=== PATIENT | male | born 2000 | race African-American/Black ===

== ENCOUNTER 2022-07-26 16:25 | Emergency (ER) | payer OTHER, SELFPAY ==
[2022-07-26 17:07] VITALS: BP 139/49; PULSE 78; RESP 18; TEMP 37.6; O2SAT 100; BMI 24.0
--- NOTE | 2022-07-26 17:08 | ED.EXTPRO ---
HPI - Extremity Problem General Chief complaint: General Medical Stated complaint: Swollen finger Time Seen by Provider: 07/26/22 17:18 Source: patient and RN notes reviewed Limitations: no limitations History of Present Illness HPI Narrative: This is a [id number]-male presenting today with evaluation of right index finger swelling and pain x 2 weeks. Denies any trauma or injury. Denies any fevers or chills. He reports pain with palpation and bending of the finger. He denies any numbness, tingling. No known injury. MD Complaint: extremity pain Onset (ago): week(s) Pain Consistency: constant Location: right (index finger) Quality: aching Radiation: none Relieving factors: nothing Exacerbating factors: exertion Associated symptoms: denies other symptoms Related Data Previous Rx's Medication Instructions Recorded cephalexin 500 mg capsule 500 mg PO Q6H 1 week #28 caps 07/26/22 ibuprofen 600 mg tablet 600 mg PO Q8H PRN pain #14 tabs 07/26/22 Allergies Allergy/AdvReac Type Severity Reaction Status Date / Time No Known Allergies Allergy Verified 07/26/22 17:11 Review of Systems Review of Systems: Yes all other systems are reviewed and are negative [facility] Past Medical History Attestation statement: The following information was validated with the patient. Social History Social History Advance Directives: No Advance Directives Information Provided: No Physical Exam Vital Signs: Vital Signs: Last Vital Signs Temp 99.7 F 07/26/22 17:07 Pulse 78 07/26/22 17:07 Resp 18 07/26/22 17:07 BP 139/49 L 07/26/22 17:07 Pulse Ox 100 07/26/22 17:07 O2 Del Method 07/26/22 17:07 BMI result Body Mass Index 24.0 Appearance: Alert. Oriented X3. No acute distress. HEENT: normal inspection CVS: Normal heart rate and rhythm. Pulses normal. Respiratory: No respiratory distress. Skin: Skin warm and dry. Normal skin color. Normal skin turgor. No rashes. Extremities: Right second digit there is a small, 2mm tender erythematous fluctuant area at the proximal nailbed. No drainage. Neuro: Oriented X 3. No motor deficit. No sensory deficit. Course Course Course Narrative: [id number]-male presenting today with complaints of right index finger pain and swelling x 2 weeks. No trauma or injury. Symptoms consistent with paronychia. Small 1mm incision made overlying fluctuance, and moderate amount of white purulent drainage expressed. Right second finger soaked in saline for 10 minutes post incision. Patient tolerated procedure without any complications or concerns. Discharged patient on a 1 week course of Keflex and given rx for ibuprofen to be taken as needed for pain. Educated to soak finger in warm soapy water and to watch for any signs of infection. Patient understands and agrees with plan. Medical Decision Making Differential Diagnosis Differential Diagnoses: The differential diagnosis associated with the presentation includes Paronychia, less likely deep tissue or tenosynovitis of the finger. No evidence of associated cellulitis. Prescription Management I considered prescription management with: Pain Medication and Antibiotic Procedures Abscess I/D Site: hand Side (if applicable): right Technique: incised with blade Sent for culture/gram staining?: No Irrigation: Yes Packing used?: none Critical Care Time Critical Care Time Critical Care Time: No Discharge Plan Discharge Clinical Impression: Paronychia of finger of right hand Patient Disposition: Home, Self-Care Instructions: Paronychia (ED), Cellulitis (ED) Additional Instructions: Take prescribed antibiotic as directed. Watch for any signs of infection such as fevers, chills, increased redness, or swelling. Soak finger in warm, soapy water 2-3 times per day. More drainage may be expressed from your finger. If any new or worsening symptoms occur, please return for re-evaluation. Prescriptions: New cephalexin 500 mg capsule 500 mg PO Q6H 7 Days Qty: 28 0RF ibuprofen 600 mg tablet 600 mg PO Q8H PRN (Reason: pain) Qty: 14 0RF Stand Alone Forms: Work/School Release Interventions: ED Discharge Assessment Last Done: 07/26/22 17:29 Discharge Date/Time: 07/26/22 17:29
--- OUTSIDE RECORDS SUMMARY | 2022-07-26 17:23 | XMS_ITS | Continuity of Care Document ---
:2000 Author Organization [facility] Address [address] [place] [address] Phone Care Team Providers Name Role Phone Kirk Lanza Family Provider Bereket Lindsay Emergency Provider [phone] Pcp-None, Primary Care Provider Unavailable Allergies, Adverse Reactions, Alerts No known allergies. Medications Medication Status Dose Units Route Directions Qty Days Start End Ins tructions Date Date Ibuprofen Active 600 MG PO EVERY 6 02 April (Motrin) 600 HOURS , MG Tablet 2019 10:36am Problems Active Problems Medical Problem Onset Date Status Abscess of groin, right Active Inactive/Resolved Problems Medical Problem Onset Date Status Abscess of skin or subcutaneous tissue R esolved Advance Directives Advance Directive Response Recorded Date/Time Advance Directives No March 18, 2020 9 :31am Health Care Proxy No March 18, 2020 9 :31am Chief Complaint and Reason for Visit Chief Complaint pain in groin Encounters Encounter Location(s) Arrival/Admit Date Discharge/Depart Date Provider(s) Departed Kaden March 18, 2020 March 18, [address] [facility] 9:29am 10:51am y Assessments No Assessments Information Available Functional Status No Functional Status information available Goals Acute Goals Please return to the emergency departmen t in 3 days for wound check and wick removal. Please keep the piece of string or wick in place unt il returning. Change the dressing once daily if it becomes saturated. Take Tylenol and Motrin for p ain. Return immediately if there is any worsening pain, redness, swelling, testicular pain or di fficulty urinating. Mental Status No Mental Status Information Available Medical Equipment No Medical Equipment Information available Insurance Providers Guarantor Payton Fecu Address [address] [place] [address] [address] [place] [id number] Contact Info. Home Phone: Payer Policy Id Coverage Id Subscriber's Subscriber Id Effective E xpiration Name Date Date Network [id number] Payton Cainu [id number] Health (Medicaid) [facility] [id number] (Medicaid) [facility] [id number] Armond [id number] PCC Required Fecu Self Pay Self N/A Plan of Treatment Future Tests Future scheduled test information is unavailable Pending Tests Pending diagnostic test information is unavailable Future Visits Future appointment information is unavailable Referrals to Other Providers Reason for Referral Start Provider Provider Contact Provider Address Referral Date Information Md Pcp-None Future Procedures Future procedure information is unavailable Future Medications Future medication information is unavailable Patient Instructions ED Staph Skin Infec Abscess IandD Social History Smoking Status Status Date of Observation Never smoked tobacco (finding) March 18, 2020 10:4 8am Observation Status Observation Response Date of Response Lives With Family March 18, 2020 1 0:48am Assigned Sex Male Vital Signs Vital Reading Result Reference Range Collection Date/ Time Height 165.1 cm March 18 9:53am Weight 58.96 kg March 18 9:53am Body Temperature 99 [degF] 97.6-99.6 March 18, 2 020 9:53am Heart Rate 96 /min 56-106 March 18 9:53am Respiratory rate 16 /min 16-20 March 18, 2 020 9:53am Oxygen saturation by Pulse 99 % 95-100 Octob 2019 9:53am oximetry BP Systolic 116 mm[Hg] 90-140 March 18 9:53am BP Diastolic 81 mm[Hg] 60-90 March 18 9:53am BMI (Body Mass Index) 21.6 kg/m2 March 182019 9:53am
--- OUTSIDE RECORDS SUMMARY | 2022-07-26 17:23 | XMS_ITS | Continuity of Care Document ---
:2000 Author Organization [facility] Address [address] [place] [address] Support Name Relationship Address Phone Kirk Lanza Primary Care Provider [address] [facility] [place] [address] Kirk Lanza Family Provider [address] [facility] [address] [address] [place] [address] Bereket Lindsay Emergency Provider [address] [facility] [phone] [place] [address] Allergies, Adverse Reactions, Alerts No known allergies. Medications No known medications. Problem List No problem information available. Procedures Procedure Date Status Us Lmtd Jt/Nonvasc Xtr Strux July 01, 2018 completed Relevant Diagnostic Tests and/or Laboratory Data No known relevant diagnostic tests, laboratory data, and/or discharge summary. Advance Directives Advance Directive Response Recorded Date/Time Advance Directives No July 01, 2018 11: 55am Health Care Proxy No July 01, 2018 11: 55am Chief Complaint and Reason for Visit Encounter Admit Date Chief Complaint Reason for Visit Departed Emergency July 01, 2018 11:54am ? abscess Hospital Discharge Instructions No known hospital discharge instructions. Encounters Encounter Facility Location Admit/Visit Discharge/Departure Atte nding Date Date Provider Departed [facility] July 01July 01, 2018 3:57pm [facility] 2018 11:54am Functional Status No known functional status. Immunizations No known immunizations. Payers Payer Name Policy Type Covered Covered [employer] Relationship Subscriber Subscriber Id [employer] Id RIP Commercial [id number] (Medicaid) [facility] Medicaid Armond [id number] Self / Same Armond 1000 [id number] PCC Required Fecu As Patient Fecu Self Pay Personal Payment (Christy - No Insurance) Plan of Care No Known Plan of Care Information Social History No known social history. Vital Signs Vital Reading Result Reference Range Collection Date/ Time Height 1.68 m July 01, 2018 1:18pm Weight 58.967 kg July 01, 2018 1:18pm Temperature 98.6 F 97.6 F-99.6 F July 01, 2018 1:18pm Pulse 70 BPM 56-106 July 01, 2018 1:18pm Respiration 14 RPM 16-20 July 01, 2018 1:18pm Pulse Oximetry 100 % 95-100 July 01, 2018 1:18pm Blood Pressure Systolic 118 - July 01, 2018 1:18pm Blood Pressure Diastolic 55 - July 01, 2018 1:18pm Body Mass Index 21.0 July 01, 2018 1:18pm
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
--- OUTSIDE RECORDS SUMMARY | 2022-07-26 17:24 | XMS_ITS | Continuity of Care Document ---
:2000 Author Organization [facility] Address [address] [place] [address] Phone Care Team Providers Name Role Phone MD Kirk Lanza Family Provider MD Lucía Cast Primary Care Provider MD Sahara Rodriguez Emergency Provider MD Bereket Lindsay Emergency Provider [phone] Chief Complaint and Reason for Visit Chief Complaint sore throat Sore throat Allergies, Adverse Reactions, Alerts No known allergies Social History Smoking Status Status Start Date End Date Date of Observat ion Never smoked tobacco (finding) A ugust 2020 6:49pm Observation Status Observation Response Date of Response Lives With Family January 26, 2021 6: 49pm Living Situation Private Home January 20, 2021 9: 17pm Additional Data Assigned Sex Male Problems Active Problems Medical Problem Onset Date Status Peritonsillar cellulitis Active Tonsillitis Active Inactive/Resolved Problems Medical Problem Onset Date Status Abscess of skin or subcutaneous tissue R esolved Abscess of groin, right Resolved Medications Medication Status Dose Units Route Directions Qty Days Start End Ins tructions Date Date Ondansetron Hcl Active 4 MG PO EVERY 6 13 January (Zofran) 4 mg HOURS , Tablet 2020 7:23pm Amoxicillin Active 875 MG PO TWICE A DAY January 26, 2021 7:24pm Amoxicillin-Pot Active 1 EACH PO TWICE A DAY 21 January Clavulanate , (Augmentin) 1 2020 EACH tablet 7:26pm Ibuprofen Active 600 MG PO EVERY 6 02 April HOURS 2019 10:36am Amoxicillin-Pot Active 10 ML PO THREE TIMES 300 10 January Clavulanate A DAY 19th, (Augmentin) 2020 250-62.5 mg/5 9:10pm mL Suspension For Reconstitution Procedures Procedure Date Performed Status Group A Streptococcus DNA Detection January 20, 2021 comp leted Relevant Diagnostic Tests and/or Laboratory Data Microbiology Results Procedure Source Result Collection Result Result Performin g Date/Time Date/Time Comment Site Group A Throat January 20, January 20, [facility] Streptococcus DNA 2020 7:42pm 2020 8:58pm [address] Detection [facility] [address] Vital Signs Vital Reading Result Reference Range Collection Date/ Time Body Temperature 100.2 [degF] 97.6-99.6 January 20 7:31pm Heart Rate 88 /min 60-90 January 20 7:31pm Respiratory rate 18 /min -January 20 7:31pm Oxygen saturation by Pulse 100 % 95-100 2020 7:31pm oximetry BP Systolic 124 mm[Hg] 90-140 January 20 7:31pm BP Diastolic 59 mm[Hg] 60-90 January 20 7:31pm Body Temperature 99.2 [degF] 97.6-99.6 January 26 6:49pm Heart Rate 69 /min 60-90 January 26 6:49pm Respiratory rate 18 /min -January 26 6:49pm Oxygen saturation by Pulse 100 % 95-100 2020 6:49pm oximetry BP Systolic 133 mm[Hg] 90-140 January 26 6:49pm BP Diastolic 66 mm[Hg] 60-90 January 26 6:49pm Advance Directives Advance Directive Response Recorded Date/Time Advance Directives No January 26, 2021 5: 58pm Health Care Proxy No January 26, 2021 5: 58pm Advance Directives No January 20, 2021 7: 24pm Health Care Proxy No January 20, 2021 7: 24pm Insurance Providers Guarantor Armond Archer Address [address] [facility] [address] [place] [id number] Contact Info. Home Phone: Payer Policy Id Coverage Id Subscriber's Subscriber Id Effective E xpiration Name Date Date Network [id number] Armond [id number] Health Fecu (Medicaid) [facility] [id number] (Medicaid) [facility] [id number] Armond [id number] PCC Required Fecu Self Pay Self N/A Encounters Encounter Location(s) Arrival/Admit Date [facility]) [facility] 7[facility]22[facility] 9[facility] January 26, 2021 [facility] 5:58pm 7:34pm y Plan of Treatment Future Tests Future scheduled test information is unavailable Pending Tests Pending diagnostic test information is unavailable Future Visits Future appointment information is unavailable Referrals to Other Providers Reason for Referral Start Provider Provider Contact Provider Address Referral Date Information Lucía Cast MD Work Phone: [facility] [address] [facility] 0 [phone] 1-2 days Lucía Cast MD Work Phone: [facility] [address] [facility] 0 [phone] Future Procedures Future procedure information is unavailable Future Medications Future medication information is unavailable Patient Instructions ED PERITONSILLAR INF-ABX only-no I/ ED Tonsillitis (Child) Tonsillitis in Adults Goals Acute Goals Your strep screen was negative but your being treated for tonsillitis. Take the full course of antibiotics even if you are feeling bett er in a few days. If you get worse or if you develop any of the warning signs accompanying informati on sheet, return immediately to the emergency department. Take acetaminophen and ibuprofen as need ed for pain. The liquid formulations are available [id number].
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
--- OUTSIDE RECORDS SUMMARY | 2022-07-26 17:24 | XMS_ITS | Continuity of Care Document ---
:2000 Author Organization [facility] Address [address] [place] [address] Phone Care Team Providers Name Role Phone [...] n Immunizations Immunization Event Not Given Dose Underwater Hunter Lot Number Vac cine Date Reason Number Informatio n Statement (VIS) Detail Tetanus, October 30, [id number] Diphtheria, 2021 Pertussis (Tdap) Procedures Procedure Date Performed Status XR foot LT min 3V March 03, 2022 1:59pm completed XR knee LT 3V March 03, 2022 1:59pm completed Relevant Diagnostic Tests and/or Laboratory Data Diagnostic Imaging Reports Report Dictated Date/Time Dictated By Status Radiology Report March 03, 2022 2:22pm Hillary calderon , completed [address] [address] Patient Name: Armond Archer Rec ord#: [id number] 9 Address: [address] [place] [address] Account#: [place] [id number] City/State/[facility]: [place] [address]: Brent back MD Insurance: [employer] (M edicaid) /Age/Sex: 2000/21/M Self Pay Admit/Reg Date: 03/03/[address]: St david Myles MD Location: [facility]/ PCP: Lucía Cast MD Date of Service: 03/03/22 Order (s): XR knee LT 3V CPT Code: 64889 Report Number: [id number] Reason for Exam: Atraumatic knee pain [...] Murillo MD 03/03/22 1425 TD/TT: 03/03/22 1422Tech: [email or web address] cc: [facility]; MIC* Lucía Cast MD; Brent Myles MD Report Dictated Date/Time Dictated By Status Radiology Report March 03, 2022 3:42pm Babatunde Summers MD completed [address] [address] Patient Name: Armond Archer Rec ord#: [id number] 9 Address: [address] [place] [address] Account#: [id number] City/State/[place]: [place] [address]: Brent back MD Insurance: [employer] (M edicaid) /Age/Sex: 2000/21/M Self Pay Admit/Reg Date: 03/03/[address]: St david Myles MD Location: ED[facility]/ PCP: Lucía Cast MD Date of Service: 03/03/22 Order (s): XR foot LT min 3V CPT Code: 61483 Report Number: [id number] Reason for Exam: Atraumatic foot pain [...] MD 03/03/22 154 7 TD/TT: 03/03/22 1542Tech: [email or web address] cc: [facility]; MIC* Lucía Cast MD; Brent [...] 1:32pm Insurance Providers Guarantor Armond Archer Address [address] [place] [address] Contact Info. Home Phone: Payer Policy Id Coverage Id Subscriber's Subscriber Id Effective E xpiration Name Date Date Network [id number] Armond [id number] Health Fecu (Medicaid) [facility] [id number] (Medicaid) [facility] [id number] Armond [id number] PCC Required Fecu Self Pay Self N/A Encounters Encounter Location(s) Arrival/Admit Date Discharge/Depart Date Provider(s) Departed [place] March 03March 03, 2022 [facility] 2021 1:22pm 4:45pm y Plan of Treatment Future Tests Future scheduled test information is unavailable Pending Tests Pending diagnostic test information is unavailable Future Visits Future appointment information is unavailable Referrals to Other Providers Reason for Referral Start Provider Provider Contact Provider Address Referral Date Information Lucía Cast MD Work Phone: [facility] [address] [facility] 0 [address] Lucía Cast MD Work Phone: [facility] [address] [facility] 0 [address] Nadege August Work Phone: [facility] MD [address]ui [address] [facility] [address] Lucía Cast MD Work Phone: [facility] [address] [facility] 0 [address] Future Procedures Procedure Name Scheduled Date Peripheral IV Insert/Manage October 30, 2021 9:35pm Saline Lock Insert/Manage October 30, 2021 9:35pm Continuous Pulse Oximetry October 30, 2021 11:25pm Future Medications Future medication information is unavailable Patient Instructions ED Pharyngitis, Strep (Presumed) ED Foot Sprain ED Sprain Knee
--- OUTSIDE RECORDS SUMMARY | 2022-07-26 17:24 | XMS_ITS | Continuity of Care Document ---
:2000 Author Organization Address [address] [place] [address] Phone Care Team Providers Name Role Phone MD Kirk Lanza Family Provider MD Lucía Cast Primary Care Provider MD Sahara Rodriguez Emergency Provider Chief Complaint and Reason for Visit Chief Complaint sore throat Allergies, Adverse Reactions, Alerts No known allergies Social History Smoking Status Status Start Date End Date Date of Observat ion Never smoked tobacco (finding) A ugust 2020 7:31pm Observation Status Observation Response Date of Response Lives With Family January 20, 2021 7: 31pm Additional Data Assigned Sex Male Problems Active Problems Medical Problem Onset Date Status Peritonsillar cellulitis Active Inactive/Resolved Problems Medical Problem Onset Date Status Abscess of skin or subcutaneous tissue R esolved Abscess of groin, right Resolved Medications Medication Status Dose Units Route Directions Qty Days Start End Ins tructions Date Date Ibuprofen Active 600 MG PO EVERY 6 30 March HOURS 2019 10:36am Amoxicillin-Pot Active 10 ML PO THREE TIMES 300 10 [place] Clavulanate A DAY , (Augmentin) 2020 250-62.5 mg/5 9:10pm mL Suspension For Reconstitution Procedures Procedure Date Performed Status Group A Streptococcus DNA Detection January 20, 2021 comp leted Relevant Diagnostic Tests and/or Laboratory Data Microbiology Results Procedure Source Result Collection Result Result Performin g Date/Time Date/Time Comment Site Group A Throat January 20, January 20, [facility] Streptococcus DNA 2020 7:42pm 2020 8:58pm [address] Detection [facility] [address] Vital Signs Vital Reading Result Reference Range Collection Date/ Time Body Temperature 100.2 [degF] 97.6-99.6 January 20 7:31pm Heart Rate 88 /min 60-90 January 20 7:31pm Respiratory rate 18 /min 12-24 January 20 7:31pm Oxygen saturation by Pulse 100 % 95-100 Aug2020 7:31pm oximetry BP Systolic 124 mm[Hg] 90-140 January 20 7:31pm BP Diastolic 59 mm[Hg] 60-90 January 20 7:31pm Advance Directives Advance Directive Response Recorded Date/Time Advance Directives No January 20, 2021 7: 24pm Health Care Proxy No January 20, 2021 7: 24pm Insurance Providers Guarantor Armond Archer Address [address] [place] [address] Contact Info. Home Phone: Payer Policy Id Coverage Id Subscriber's Subscriber Id Effective E xpiration Name Date Date [facility] [id number] Armond [id number] [facility] Fecu (Medicaid) [facility] [id number] (Medicaid) [facility] [id number] Armond [id number] PCC Required Fecu Self Pay Self N/A Encounters Encounter Location(s) Arrival/Admit Date Discharge/Depart Date Provider(s) Departed Kaden January 20, 2021 January 20, 2021 [facility] 7:22pm 9:27pm y Plan of Treatment Future Tests Future scheduled test information is unavailable Pending Tests Pending diagnostic test information is unavailable Future Visits Future appointment information is unavailable Referrals to Other Providers Reason for Referral Start Provider Provider Contact Provider Address Referral Date Information 1-2 days Lucía Cast MD Work Phone: [facility] [address] [facility] 5 [address] Future Procedures Future procedure information is unavailable Future Medications Future medication information is unavailable Patient Instructions ED PERITONSILLAR INF-ABX only-no I/ ED Tonsillitis (Child) Goals Acute Goals Your strep screen was [...] for pain. The liquid formulations are available [id number].
--- OUTSIDE RECORDS SUMMARY | 2022-07-26 17:24 | XMS_ITS | Continuity of Care Document ---
:2000 Author Organization [facility] Address [address] [place] [address] Phone Care Team Providers Name Role Phone MD Lucía Cast Primary Care Provider MD Kirk Lanza Family Provider MD Dean Minor Emergency Provider Chief Complaint and Reason for Visit Chief Complaint sore throat Allergies, Adverse Reactions, Alerts No known allergies Social History Smoking Status Status Start Date End Date Date of Observat ion Never smoked tobacco (finding) N ovember 2020 1:49pm Observation Status Observation Response Date of Response Lives With Family January 26, 2021 5: 49pm Living Situation Private Home January 20, 2021 8: 17pm Additional Data Assigned Sex Male Problems Active Problems Medical Problem Onset Date Status Cellulitis of tonsil Active Inactive/Resolved Problems Medical Problem Onset Date Status Abscess of skin or subcutaneous tissue R esolved Peritonsillar cellulitis Resolved Tonsillitis Resolved Abscess of groin, right Resolved Medications Medication Status Dose Units Route Directions Qty Days Start End Ins tructions Date Date Ondansetron Active 4 MG PO EVERY 6 13 January Hcl (Zofran) HOURS , 4 mg Tablet 2020 6:23pm Amoxicillin Active 875 MG PO TWICE A DAY January 26, 2021 6:24pm Amoxicillin-P Active 1 EACH PO TWICE A DAY 21 January ot , Clavulanate 2020 (Augmentin) 1 6:26pm EACH tablet Amoxicillin-P Active 1 TAB PO EVERY 12 14 7 Novembe ot HOURS r , Clavulanate 2020 (Augmentin) 2:34pm 875-125 mg Tablet Ibuprofen Active 600 MG PO EVERY 6 02 April HOURS 2019 9:36am Amoxicillin-P Discontin 10 ML PO THREE TIMES 300 10 January A ugust ot ued A DAY , Clavulanate 2020 2020 (Augmentin) 8:10pm 11:12p 250-62.5 mg/5 m mL Suspension For Reconstitutio n Procedures Procedure Date Performed Status Group A Streptococcus DNA Detection April 24, 2021 comp leted Relevant Diagnostic Tests and/or Laboratory Data Microbiology Results Procedure Source Result Collection Result Result Performin g Date/Time Date/Time Comment Site Group A Throat April 24April [facility] Streptococcus DNA 2020 1:40pm [address] Detection 2:22pm [place] [id number] Vital Signs Vital Reading Result Reference Range Collection Date/ Time Height 165.1 cm April 24, 1:46pm Weight 61.23 kg April 24 021 1:46pm Body Temperature 100 [degF] 97.6-99.6 April 24, 2021 1:46pm Heart Rate 96 /min -April 24 021 1:46pm Respiratory rate 16 /min -April 24, 2021 1:46pm Oxygen saturation by 100 % 95-100 April 242020 Pulse oximetry 1:46pm BP Systolic 118 mm[Hg] 90-140 April 24, 021 1:46pm BP Diastolic 65 mm[Hg] 60-90 April 24 021 1:46pm BMI (Body Mass Index) 22.5 kg/m2 April 052020 1:46pm Body mass index (BMI) 46.9 % Normal or healthy April 24, 2021 [Percentile] Per age and weight; 5th to 85th 1:4 6pm sex percentile Advance Directives Advance Directive Response Recorded Date/Time Advance Directives No January 26, 2021 4: 58pm Health Care Proxy No January 26, 2021 4: 58pm Advance Directives No April 24, 2021 12:55pm Health Care Proxy No April 24, 2021 12:55pm Advance Directives No January 20, 2021 6: 24pm Health Care Proxy No January 20, 2021 6: 24pm Insurance Providers Guarantor Armond Archer Address [address] [place] [phone] Contact Info. Home Phone: Payer Policy Id Coverage Id Subscriber's Subscriber Id Effective E xpiration Name Date Date [facility] [id number] Armond [id number] Health Fecu (Medicaid) [facility] [id number] (Medicaid) [facility] [id number] Armond [id number] PCC Required Fecu Self Pay Self N/A Encounters Encounter Location(s) Arrival/Admit Date Discharge/Depart Date Provider(s) Departed Kaden April 24, 2021 April 24, 2021 [facility] 12:54pm 3:00pm y Plan of Treatment Future Tests Future scheduled test information is unavailable Pending Tests Pending diagnostic test information is unavailable Future Visits Future appointment information is unavailable Referrals to Other Providers Reason for Referral Start Provider Provider Contact Provider Address Referral Date Information Lucía Cast MD Work Phone: [email or web address] [address] [facility] [address] Lucía Cast MD Work Phone: [email or web address] [address] [facility] 0 [address] 1-2 days Lucía Cast MD Work Phone: [email or web address] [address] [facility] 0 [address] Future Procedures Future procedure information is unavailable Future Medications Future medication information is unavailable Patient Instructions ED PERITONSILLAR INF-ABX only-no I/ ED Tonsillitis (Child) Tonsillitis in Adults ED Pharyngitis, Strep (Presumed)
== END 2022-07-26 17:29 | disposition home or self-care (01) ==
PROVIDERS: Emergency Provider Emergency Medicine
DX: L03.011 Cellulitis of right finger (principal)
CPT/HCPCS: 26010; 99282; 99283